=== PATIENT | female | born 1960 | race Caucasian/White ===

== ENCOUNTER → 2024-05-10 10:21 | Outpatient (REF) | payer OTHER, SELFPAY | LOC: RAD 10:21 | PROVIDERS: ATTENDING PHYSICIAN Nurse Practitioner; FAMILY PHYSICIAN Internal Medicine | DX: M25.511 Pain in right shoulder (principal); M79.651 Pain in right thigh | CPT/HCPCS: 73030; 73502; 73552 ==

== ENCOUNTER → 2024-05-26 07:39 | Outpatient (REF) | payer OTHER, SELFPAY | LOC: HWWDC 07:39 | PROVIDERS: ATTENDING PHYSICIAN Obstetrics & Gynecology Gynecology; FAMILY PHYSICIAN Internal Medicine | DX: Z12.31 Encounter for screening mammogram for malignant neoplasm of breast (principal) | CPT/HCPCS: 77063; 77067 ==

== ENCOUNTER → 2025-02-15 13:53 | Outpatient (REF) | payer SELFPAY | LOC: HWRAD 13:53 | PROVIDERS: ATTENDING PHYSICIAN Family Medicine; FAMILY PHYSICIAN Internal Medicine | DX: N95.1 Menopausal and female climacteric states (principal); E72.11 Homocystinuria; E03.9 Hypothyroidism, unspecified; E55.9 Vitamin D deficiency, unspecified; I77.89 Other specified disorders of arteries and arterioles | CPT/HCPCS: 75571 ==

== ENCOUNTER → 2025-05-27 08:10 | Outpatient (REF) | payer OTHER, SELFPAY | LOC: HWWDC 08:10 | PROVIDERS: ATTENDING PHYSICIAN Obstetrics & Gynecology Gynecology; FAMILY PHYSICIAN Internal Medicine | DX: Z12.31 Encounter for screening mammogram for malignant neoplasm of breast (principal) | CPT/HCPCS: 77063; 77067 ==